=== PATIENT | male | born 1995 | race Caucasian/White ===

== ENCOUNTER 2016-10-08 21:31 | Emergency (ER) | payer OTHER ==
[~2016-10-08] VITALS: Ht 170.2 cm; Wt 70.5 kg
[2016-10-08 22:13] VITALS: BP 115/69
== END 2016-10-08 22:52 | disposition home or self-care (01) ==
LOC: EMS 21:33
DX: L50.9 Urticaria, unspecified (principal)
CPT/HCPCS: 99282